=== PATIENT | female | born 1975 | race Caucasian/White ===

== ENCOUNTER 2022-09-26 18:54 | Observation (INO) | payer SELFPAY ==
[2022-09-26 19:02] VITALS: BP 185/98; PULSE 72; RESP 16; TEMP 36.3; O2SAT 99; BMI 30.8
--- NOTE | 2022-09-26 19:19 | ED_ITS ---
HPI - General Adult General Chief complaint: Nausea/Vomiting Stated complaint: Crohn's Disease - Flare Up - Can't Keep Meds Down Time Seen by Provider: 09/26/22 18:55 History of Present Illness HPI narrative: This 47-year-old female comes in with vomiting and diarrhea with abdominal pain. She has a history of Crohn's disease and states that she was in the hospital a couple days this week and discharged 2 days ago for these symptoms. She left the hospital early upon learning that her father had . She states that he had terminal cancer and did not tell family members about it so his came as a surprise. She states that she has not been able to take her medicines because of vomiting. Additionally she left some of her medicines at home. She did have CT scan of her abdomen and pelvis during that hospitalization and this showed some evidence of colitis but no other complications by her report. Related Data Home Medications Medication Instructions Recorded Confirmed dicyclomine 10 mg capsule 10 mg PO BID 09/26/22 09/26/22 infliximab 100 mg intravenous IV 09/26/22 solution (Remicade) prednisone 20 mg tablet 20 mg PO DAILY 09/26/22 09/26/22 zolpidem 10 mg tablet 10 mg PO QHS 09/26/22 09/26/22 Allergies Allergy/AdvReac Type Severity Reaction Status Date / Time No Known Drug Allergies Allergy Verified 09/26/22 19:07 Review of Systems Status of ROS: Reports: 10 or more systems reviewed and unremarkable except as noted in History and below Narrative: Constitutional: No fevers, no weight gain or loss. Eyes: No discharge. No vision changes. HENT: No congestion, no sore throat, no ear pain. Cardiovascular: No chest pain, no palpitations. Respiratory: No shortness of breath, no wheezes, no cough. Gastrointestinal: Abdominal pain with vomiting and diarrhea. Genitourinary: No dysuria, no hematuria. Musculoskeletal: Normal range of motion. Skin: No rashes, no pruritis. Neurological: No dizziness, weakness, sensory change, speech change. Endo/Heme/Allergies: No bruising or bleeding. No polydipsia. Pysch: no suicidality, no anxiety, no insomnia. All other systems reviewed and are negative. [facility] Medical History (Updated 09/26/22 @ 21:06 by Eulogio Hayes MD) Crohn's disease Social History Smoking Status: Never smoker Do you use any of these nicotine containing products: None Second hand tobacco smoke exposure: No How often do you have a drink containing alcohol: never How often do you have six or more drinks on one occasion: Never AUDIT-C Alcohol total score: 0 Non-prescribed substance use: denies use service: No Exam Narrative: Exam Narrative: Constitutional: Well-developed, well-nourished, no acute distress. HEENT: Normocephalic, atraumatic. Neck: Normal range of motion. Nontender. Supple. Heart: Regular. No murmurs. Normal rate. Intact distal pulses. Lungs: Clear to auscultation. No chest discomfort. No wheezes, rhonchi, or rales. Abdomen: Diffuse tenderness in the abdomen, right greater than left. Genitalia: Deferred. Back: No midline tenderness. Normal range of motion. Extremities: Normal range of motion. No injury. Skin: Intact. No rash. Warm. No erythema or pallor. Neurologic: No altered sensation. No weakness. Alert and oriented. Psychiatric: No suicidality. No anxiety or depression. No insomnia. Nursing notes and vitals signs are reviewed. Const: Vital Signs, click to edit/add: Vital Signs - 24 hr 09/26/22 19:02 09/26/22 19:59 09/26/22 21:04 Temperature 97.3 F L Pulse Rate [Left P ulse Oximeter] 72 76 71 Respiratory Rate 16 16 16 Blood Pressure [Ri ght Upper Arm] 185/98 H 146/82 H 172/93 H Pulse Oximetry 99 97 98 Oxygen Delivery Me thod Room Air Room Air Room Air Course Vital Signs Vital signs: Initial Vital Signs Temperature 97.3 F L 09/26/22 19:02 Temperature Source Temporal Artery Scan 09/26/22 19:02 Pulse Rate 72 09/26/22 19:02 Respiratory Rate 16 09/26/22 19:02 Blood Pressure 185/98 H 09/26/22 19:02 Blood Pressure Mean 127 09/26/22 19:02 Blood Pressure Position Semi-Fowlers 09/26/22 19:02 Pulse Oximetry 99 09/26/22 19:02 Oxygen Delivery Method 09/26/22 19:02 Vital Signs Temperature 97.3 F L 09/26/22 19:02 Pulse Rate 72 09/26/22 19:02 Respiratory Rate 16 09/26/22 19:02 Blood Pressure 185/98 H 09/26/22 19:02 Pulse Oximetry 99 09/26/22 19:02 Oxygen Delivery Method 09/26/22 19:02 Temperature 97.3 F L 09/26/22 19:02 Pulse Rate 71 09/26/22 21:04 Respiratory Rate 16 09/26/22 21:04 Blood Pressure 172/93 H 09/26/22 21:04 Pulse Oximetry 98 09/26/22 21:04 Oxygen Delivery Method 09/26/22 21:04 Medical Decision Making MDM Narrative Medical decision making narrative: This patient has Crohn's disease and comes in with symptoms of a flare up. She arrives with normal vital signs. An IV was established where she received a L of normal saline, Solu-Medrol, Zofran, and Dilaudid. This brought some relief to her symptoms. Lab results returned with reassuring findings. Her sed rate returns in normal range. The patient states that she feels that she would not be able to go home without recurrent symptoms and inability to take her medicines. I did speak with the hospitalist vehicle modification technician, Dr. Esposito, who will arrange for her hospitalization overnight at least. Lab Data Labs: Lab Results 09/26/22 09/26/22 09/26/22 Range/Units 19:46 19:46 19:46 WBC 11.95 H (4.50-11.00) K/uL RBC 4.59 (4.00-5.20) m/uL Hgb 13.0 (12.0-16.0) gm/dL Hct 39.0 (33.0-51.0) % MCV 85 (80-100) fL MCH 28 (26-34) pg MCHC 33 (32-36) gm/dL RDW Coeff of Shavon 12.1 (11.5-15.5) % Plt Count 219 (140-440) K/uL Neut % (Auto) 73.1 H (42.0-72.0) % Lymph % (Auto) 20.3 (20-44) % Coffee % (Auto) 5.9 (0.0-11.0) % Eos % (Auto) 0.1 (0.0-7.0) % Baso % (Auto) 0.1 (0.0-3.0) % Neut # (Auto) 8.70 H (1.7-7.0) K/uL Lymph # (Auto) 2.40 (0.90-2.90) K/uL [place] # (Auto) 0.70 (0.00-0.90) K/UL Eos # (Auto) 0.00 (0.00-0.50) K/uL Baso # (Auto) 0.00 (0.00-0.30) K/uL ESR 9 (2-20) mm/hr Sodium 140 (135-149) mmol/L Potassium 4.0 (3.6-5.1) mmol/L Chloride 104 (96-114) mmol/L Carbon Dioxide 29 (20-32) mmol/L BUN 12 (5-24) mg/dL Creatinine 0.7 (0.5-1.5) mg/dL Estimated Creat Clear 90.36 Estimated GFR 108 ml/min Glucose 113 (60-115) mg/dL Calcium 9.6 (8.4-10.6) mg/dL Discharge Plan Discharge Clinical Impression: Crohn's disease Patient Disposition: Admitted As Inpatient Condition: Unchanged Prescriptions: No Action prednisone 20 mg tablet 20 mg PO DAILY Rx Instructions: days 11-21 of therapy dicyclomine 10 mg capsule 10 mg PO BID infliximab [Remicade] 100 mg recon soln IV zolpidem 10 mg tablet 10 mg PO QHS Follow Up/Referrals: Provider,Not a Local [Primary Care Provider] -
[2022-09-26] MEDS: 0.9 % SODIUM CHLORIDE 1000 ml 1,000 ML IV (19:50)
[2022-09-26] MEDS: HYDROmorphone 0.5 mg/0.5 ml inj IVP ×2 (19:52→22:10)
[2022-09-26] MEDS: ONDANSETRON 2 MG/ML inj 4 MG IVP (19:52)
[2022-09-26 19:54] LABS: Basophils Percent Auto 0.1 % (0.0-3.0); Eosinophils Percent Auto 0.1 % (0.0-7.0); Immature Granulocytes Pct Auto 0.5 %; Lymphocytes Percent Auto 20.3 % (20-44); Mean Corpuscular HGB Conc 33 gm/dL (32-36); Mean Corpuscular Hemoglobin 28 pg (26-34); Mean Corpuscular Volume 85 fL (80-100); Monocytes Percent Auto 5.9 % (0.0-11.0); Neutrophils Percent Auto 73.1 % (42.0-72.0); Platelet Count* 219 K/uL (140-440); RDW Coefficient of Variation % 12.1 % (11.5-15.5); Red Blood Count 4.59 m/uL (4.00-5.20); White Blood Count* 11.95 K/uL (4.50-11.00)
[2022-09-26 19:57] LABS: Slide Review Reflex No
[2022-09-26 19:59] VITALS: BP 146/82; PULSE 76; RESP 16; O2SAT 97
[2022-09-26 20:09] LABS: Chloride* 104 mmol/L (96-114); Sodium* 140 mmol/L (135-149)
[2022-09-26 20:12] LABS: Blood Urea Nitrogen* 12 mg/dL (5-24); Carbon Dioxide* 29 mmol/L (20-32); Creatinine* 0.7 mg/dL (0.5-1.5); Est. Creatinine Clearance* 90.36; Estimated Glomerular Filt Rate 108 ml/min; Glucose* 113 mg/dL (60-115)
[2022-09-26 20:13] LABS: Calcium* 9.6 mg/dL (8.4-10.6)
--- NOTE | 2022-09-26 20:29 | ED.NURSE ---
Patient reports mild nausea. Declines further intervention at this time. She states she is sensitive to several of the antiemetics. Emesis bag provided. Patient will let curriculum writer know nausea is worsening.
[2022-09-26 20:48] LABS: Erythrocyte SedimentationRate* 9 mm/hr (2-20)
[2022-09-26 21:04] VITALS: BP 172/93; PULSE 71; RESP 16; O2SAT 98
[2022-09-26] MEDS: METHYLPREDNISOLONE SOD SUCC 62.5 MG/ML (125) IVP (21:10)
[2022-09-26 21:18] LABS: C Reactive Protein* 0.5 mg/dL (0.5-1.0)
--- NOTE | 2022-09-26 21:58 | P.IMHP_ITS ---
Hospitalist- H&P: TATYANA History of Present Illness Date Seen: 09/26/22 Chief complaint: Tenzin's Disease - Flare Up - Can't Keep Meds Down Narrative: Jossie Dominguez is a 47 year old female with longstanding Crohn's disease admitted through the emergency department with persistent vomiting. Last week the patient had onset of symptoms of a typical flare of her Crohn's disease. She had abdominal pain and vomiting. She tried to manage this is an outpatient with oral prednisone 60 mg daily. She was unable to keep down the prednisone and so she was admitted to [facility] in [facility] from Wednesday to of this week. She had to leave the hospital earlier than planned because she wanted to come to [place] because her father just committed suicide. He had terminal cancer. Since leaving the hospital she has continued to have problems with eating and drinking and keeping her medications down. She has not had a fever. She continues to have abdominal pain primarily in the mid right abdomen. She is passing gas. At [facility] in [facility] she had a CT scan of the abdomen which showed bowel thickening but apparently no abscess or obstruction. She has Crohn's disease since age 22. Multiple hospitalizations for flares but no surgery. She reports she has had a partial obstruction treated with NG suctioning in the past. Treatment for Crohn's disease has been Remicade taken every 8 weeks, mesalamine 800 mg p.o. 3 times a day and prednisone 60 mg daily as needed for flares Review of Systems Narrative: Other than the abdominal symptoms recently she reports that she has generally been feeling well with no other illness. Current medications: Prozac 40 mg daily Lipitor 20 mg daily Prilosec 20 mg b.i.d. Lisinopril 20 mg daily Mesalamine 800 mg p.o. t.i.d. Zolpidem 10 mg at at bedtime p.r.n. Dicyclomine 10 mg b.i.d. p.r.n. Ondansetron p.r.n. Imodium p.r.n. Remicade every 8 weeks IV Prednisone 20 mg 3 tablets Daily p.r.n. Crohn's flares PFSH PFS Medical History (Updated 09/26/22 @ 22:16 by Chris Esposito MD) Crohn's disease Hypertension Stroke Surgical History (Updated 09/26/22 @ 22:16 by Chris Esposito MD) History of appendectomy History of section History of cholecystectomy History of fasciotomy Hx of decompressive lumbar laminectomy Family History (Updated 09/26/22 @ 22:16 by Chris Esposito MD) Father Colon cancer Social History (Updated 09/26/22 @ 22:19 by Chris Esposito MD) Narrative: Patient is born in the [place]. Mother lives in [place]. She moved to [place] to live with her [place] . She has 3 daughters. She her [place]ian . As a part of the divorce she is to remain in [facility] until her youngest daughter is 18 years old. Youngest is currently 14 years old. Her older daughters are in college. She does not smoke. She does not drink alcohol. She does not use recreational drugs. Her mother, Molly Newton, lives in [place] and is healthcare power of finance attorney. Code status is full. Smoking Status: Never smoker Do you use any of these nicotine containing products: None Second hand tobacco smoke exposure: No How often do you have a drink containing alcohol: never How often do you have six or more drinks on one occasion: Never AUDIT-C Alcohol total score: 0 Non-prescribed substance use: denies use service: No Meds Home Medications and Allergies Home Medications Medication Instructions Recorded Confirmed Type dicyclomine 10 mg capsule 10 mg PO BID 09/26/22 09/26/22 History infliximab 100 mg intravenous IV 09/26/22 History solution (Remicade) prednisone 20 mg tablet 20 mg PO DAILY 09/26/22 09/26/22 History zolpidem 10 mg tablet 10 mg PO QHS 09/26/22 09/26/22 History Allergies Allergy/AdvReac Type Severity Reaction Status Date / Time No Known Drug Allergies Allergy Verified 09/26/22 19:07 Exam Narrative: Exam Narrative: She is alert and appears in no distress. She gives her own history. Eyes are normal. Oropharynx with small airway. Neck is supple without mass or adenopathy. Respirations are clear to auscultation. Cardiovascular: S1, S2, regular rate and rhythm. No murmur gallop or rub. Abdomen: Bowel sounds active. Abdomen is soft with mild right-sided tenderness. No mass. Extremities with intact pulses. No edema. No rash. Const: Vital Signs, click to edit/add: Vital Signs - 24 hr 09/26/22 19:02 09/26/22 19:59 09/26/22 21:04 Temperature 97.3 F L Pulse Rate [Left P ulse Oximeter] 72 76 71 Respiratory Rate 16 16 16 Blood Pressure [Ri ght Upper Arm] 185/98 H 146/82 H 172/93 H Pulse Oximetry 99 97 98 Oxygen Delivery Me thod Room Air Room Air Room Air Documenting provider has reviewed patient's vital signs: yes Hospitalist - H&P: Result Labs Labs: Short CBC 09/26/22 Range/Units 19:46 WBC 11.95 H (4.50-11.00) K/uL Hgb 13.0 (12.0-16.0) gm/dL Hct 39.0 (33.0-51.0) % Plt Count 219 (140-440) K/uL BMP 09/26/22 19:46 Sodium 140 Potassium 4.0 Chloride 104 Carbon Dioxide 29 BUN 12 Creatinine 0.7 Glucose 113 Calcium 9.6 Assessment and Plan Assessment and plan (1) Crohn's disease: Status: Acute Plan Patient will be admitted for IV fluids, IV steroids and monitoring. Will attempt to obtain medical records from [facility] in [facility]. May need repeat imaging to determine if she has a partial small-bowel obstruction. May need surgical consult if she does have a partial small-bowel obstruction. Monitor for infectious complications including abscess formation. Plan of care is discussed with the patient. She is in agreement with this. Total time spent today is 75 minutes, 45 minutes in coordination of care and discussing with patient and other providers ongoing evaluation management of flare of Crohn's disease
[2022-09-26 22:14] VITALS: BP 162/99; PULSE 65; RESP 16; O2SAT 97
--- NOTE | 2022-09-26 22:29 | ED.NURSE ---
Report to coverage specialist, Alida. Patient will be going to room 261.
[2022-09-26 22:30] LABS: PCR FLU A Negative PCR FLU A (Negative); PCR FLU B Negative PCR FLU B (Negative); PCR RSV Negative PCR RSV (Negative); SARS PCR* Negative SARS-CoV-2 (Negative)
[2022-09-26 22:41] VITALS: BP 142/100; PULSE 63; RESP 18; TEMP 36.8; O2SAT 98; BMI 32.7
[2022-09-26 23:00] VITALS: BP 142/100; PULSE 63; RESP 18; TEMP 36.8; O2SAT 98
[2022-09-27] MEDS: LACTATED RINGERS 1000 ML 1,000 ML 125 ML IV (00:07)
[2022-09-27] MEDS: HYDROmorphone 0.5 mg/0.5 ml inj IVP (00:19)
[2022-09-27] MEDS: ZOLPIDEM 5 MG TABLET 10 MG PO (00:20)
[2022-09-27] MEDS: HYDROmorphone 2 MG TABLET PO ×4 (01:17→08:23)
[2022-09-27 03:18] VITALS: BP 150/82; PULSE 77; RESP 18; TEMP 36.8; O2SAT 98
--- NOTE | 2022-09-27 06:50 | PC.NURSE ---
Status [id number] Pt admitted from ER into 261 around 0. Alert and oriented. C/o abdominal pain. PRN IV dilaudid given x1, PO dilaudid given Q2H PRN. BP slightly elevated. Remains on room air. Denies nausea. LR at 125mL/hr. Up independently. Minimal resting. ?
[2022-09-27 07:36] LABS: Hemoglobin* 13.7 gm/dL (12.0-16.0); Immature Granulocytes Abs Auto 0.06 K/uL (0.00-0.30); Immature Granulocytes Pct Auto 0.8 %; Lymphocytes Percent Auto 11.7 % (20-44); Mean Corpuscular HGB Conc 33 gm/dL (32-36); Mean Corpuscular Hemoglobin 29 pg (26-34); Mean Corpuscular Volume 85 fL (80-100); Monocytes Percent Auto 1.6 % (0.0-11.0); Neutrophils Percent Auto 85.9 % (42.0-72.0); Platelet Count* 166 K/uL (140-440); White Blood Count* 7.59 K/uL (4.50-11.00)
[2022-09-27 07:38] LABS: Slide Review Reflex No
[2022-09-27 07:59] VITALS: BP 169/95; PULSE 71; RESP 18; TEMP 37.2; O2SAT 99
--- NOTE | 2022-09-27 08:00 | PM.IMPN1 ---
Progress Note: A&P Assessment and plan (1) Crohn's disease: Problem details: DC fluids. Transition from IV steroids to p.o. prednisone, 60 mg this morning. Changing to oral Dilaudid. 2-4 mg Q 4 p.r.n.. Advanced diet as tolerated. If her symptoms are managed to her satisfaction and she is not vomiting or needing excessive opioids we can look at a discharge later today. Status: Acute Subjective Date Seen: 09/27/22 Interval history: Daily Progress Note - Hospital Medicine Day #: 2 CC: Crohn's disease exacerbation OVERNIGHT UPDATES FROM STAFF & MED, LAB, IMAGING UPDATES Patient had a good night. She states her pain is still up and down but generally better. She has passed 2 nonbloody bowel movements and she is passing gas. She has ordered a full liquid diet and is hoping to go home today. She has done this many times in the course of her Crohn's disease. She specifically asks for her fluids to be turned off, to transition to oral prednisone, oral Dilaudid and to be able to advance her diet at lunch. She states she will be able to tell if she is ready to go by this afternoon. Objective: Vitals: Reviewed. No evidence of sepsis. Hypertensive actually. No fever. see above Lungs: Clear. Cardiac: S1S2. Abdomen: Soft, distant bowel sounds. Mild tenderness in the right lower quadrant. No rebound. Disposition/Potential discharge - Likely to return to previous living situation. Total time is 35 minutes with greater than 50% spent in counseling and coordination of care. Exam Const: Vital Signs, click to edit/add: Vital Signs - 24 hr 09/26/22 19:02 09/26/22 19:59 09/26/22 21:04 Temperature 97.3 F L Pulse Rate [Left P ulse Oximeter] 72 76 71 Pulse Rate [Pulse Oximeter] Respiratory Rate 16 16 16 Blood Pressure [Le ft Arm] Blood Pressure [Ri ght Upper Arm] 185/98 H 146/82 H 172/93 H Pulse Oximetry 99 97 98 Oxygen Delivery Me thod Room Air Room Air Room Air 09/26/22 22:14 09/26/22 22:41 09/26/22 23:00 Temperature 98.2 F 98.2 F Pulse Rate [Left P ulse Oximeter] 65 Pulse Rate [Pulse Oximeter] 63 63 Respiratory Rate 16 18 18 Blood Pressure [Le ft Arm] 142/100 H 142/100 H Blood Pressure [Ri ght Upper Arm] 162/99 H Pulse Oximetry 97 98 98 Oxygen Delivery Me thod Room Air Room Air Room Air 09/27/22 03:18 Temperature 98.2 F Pulse Rate [Left P ulse Oximeter] Pulse Rate [Pulse Oximeter] 77 Respiratory Rate 18 Blood Pressure [Le ft Arm] 150/82 H Blood Pressure [Ri ght Upper Arm] Pulse Oximetry 98 Oxygen Delivery Me thod Room Air Labs Labs: Laboratory Results - last 24 hr 09/26/22 09/26/22 09/26/22 19:46 19:46 19:46 WBC 11.95 H RBC 4.59 Hgb 13.0 Hct 39.0 MCV 85 MCH 28 MCHC 33 RDW Coeff of Shavon 12.1 Plt Count 219 Neut % (Auto) 73.1 H Lymph % (Auto) 20.3 [place] % (Auto) 5.9 Eos % (Auto) 0.1 Baso % (Auto) 0.1 Neut # (Auto) 8.70 H Lymph # (Auto) 2.40 [place] # (Auto) 0.70 Eos # (Auto) 0.00 Baso # (Auto) 0.00 ESR 9 Sodium 140 Potassium 4.0 Chloride 104 Carbon Dioxide 29 BUN 12 Creatinine 0.7 Estimated Creat Clear 90.36 Estimated GFR 108 Glucose 113 Calcium 9.6 C-Reactive Protein 0.5 SARS-CoV-2 (PCR) Influenza Type A (PCR) Influenza Type B (PCR) RSV (PCR) 09/26/22 09/27/22 21:00 06:58 WBC 7.59 RBC 4.80 Hgb 13.7 Hct 41.0 MCV 85 MCH 29 MCHC 33 RDW Coeff of Shavon 12.0 Plt Count 166 Neut % (Auto) 85.9 H Lymph % (Auto) 11.7 L [place] % (Auto) 1.6 Eos % (Auto) 0.0 Baso % (Auto) 0.0 Neut # (Auto) 6.50 Lymph # (Auto) 0.90 [place] # (Auto) 0.10 Eos # (Auto) 0.00 Baso # (Auto) 0.00 ESR Sodium Potassium Chloride Carbon Dioxide BUN Creatinine Estimated Creat Clear Estimated GFR Glucose Calcium C-Reactive Protein SARS-CoV-2 (PCR) Negative SARS-CoV-2 Influenza Type A (PCR) Negative PCR FLU A Influenza Type B (PCR) Negative PCR FLU B RSV (PCR) Negative PCR RSV
[2022-09-27] MEDS: OMEPRAZOLE 20 MG CAPSULE DR PO (08:23)
[2022-09-27] MEDS: FLUOXETINE HCL 20 MG CAPSULE 40 MG PO (09:03)
[2022-09-27] MEDS: predniSONE 20 MG TABLET 60 MG PO (09:03)
[2022-09-27 09:22] LABS: Procalcitonin* 0.04 ng/mL (<0.50)
[2022-09-27 10:35] LABS: C Reactive Protein* < 0.5 mg/dL (0.5-1.0)
[2022-09-27 10:40] LABS: Procalcitonin* 0.03 ng/mL (<0.50)
[2022-09-27 11:24] VITALS: BP 156/90; PULSE 72; RESP 16; TEMP 37.1; O2SAT 93
[2022-09-27 12:56] VITALS: RESP 16; TEMP 37.1
--- NOTE | 2022-09-27 12:58 | PC.NURSE ---
Discharge: Patient pleasant and cooperative, up independently. Patient came up to desk around 1200 asking for discharge due to family issues, MD updated and discharge orders processed. Pain controlled with PRN dilaudid, last taken this morning at 8am. Patient states she does not have ride from hospital but has car in ED parking lot, encouraged patient to find ride since she has had dilaudid 5hrs ago. IV removed with catheter intact. Discharge instructions and medications reviewed. Patient discharged from floor @ 1255, able to ambulate to car.
--- NOTE | 2022-09-27 14:56 | P.DS_ITS ---
DS: Providers Provider Date Seen: 09/27/22 Date of admission: 09/26/22 22:33 Primary care physician: Not a Local Provider Admitting Clinician: Chris Esposito MD Attending Physician on discharge: Zoila Nolasco MD [place] [facility] Date of Discharge: 09/27/22 DS: Diagnosis Discharge Diagnosis (1) Crohn's disease: Status: Acute Problem details: DC fluids. Transition from IV steroids to p.o. prednisone, 60 mg this morning. Changing to oral Dilaudid. 2-4 mg Q 4 p.r.n.. Advanced diet as tolerated. If her symptoms are managed to her satisfaction and she is not vomiting or needing excessive opioids we can look at a discharge later today. DS: Summary Hospital Course Hospital Course: HOSPITALIST DISCHARGE SUMMARY ATTENDING PHYSICIAN: Zoila Nolasco MD FINAL DIAGNOSIS: Presumed Crohn's disease exacerbation HOSPITAL FOLLOWUP ISSUES: 1. 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 The prednisone taper. Zofran, Dilaudid p.r.n.. REFERRALS WHILE ADMITTED: None REFERRALS AFTER DISCHARGE: None BRIEF HOSPITAL COURSE: Patient came in on the evening of September 26 complaining of abdominal pain, nausea and vomiting. She states she has had a history of Crohn's disease for many years. She states that she was admitted earlier in the week in [place] for a routine exacerbation when she had to leave suddenly to come to [place] where her father has committed suicide. Overnight she received IV fluids, IV steroids and pain medication with antiemetics. She felt better and had a full liquid diet. She did not vomit. She has no fever. She has very minimal abdominal tenderness. She asked for discharge this morning and would like to finish her prednisone orally, she states if she has p.o. Dilaudid, p.o. Zofran she can manage through the rest of the exacerbation. She had 2 small stools while she was here. No mucus. No blood. Discharged with limited narcotic prescriptions. She also asked for refill of her Ambien which she left in her smith to come to [place]. Again a limited number of these. Her prednisone taper was sent to [facility] as well as [facility]. SUBSTANTIVE NOTATIONS ON IMAGING, LAB, MICROBIOLOGY/PATHOLOGY STUDIES: CBC down trended from 11.9-7.5 CRP was normal, procalcitonin was normal Normal electrolytes yesterday. No imaging was obtained. DISCHARGE MEDICATIONS: See Reconciled list - SIGNIFICANT CHANGES: REVIEW OF SYSTEMS No new chest pain or dyspnea Pain controlled No voiding difficulties Tolerating diet challenge PHYSICAL EXAM: CONSTITUTIONAL: VITAL SIGNS: see record. HEENT: Normocephalic, atraumatic. PERRL, EOMI, conjunctivae pink, no scleral icterus. Ears and nose externally normal. Pharynx normal. NECK: No JVD. No carotid bruit, no thyromegaly, no adenopathy. CHEST: Clear to auscultation bilaterally. HEART: S1 and S2 normal. Edema ABDOMEN: Soft, nontender. Normal bowel sounds. MUSCULOSKELETAL: No gross joint deformity or swelling. NEURO: Cranial nerves intact. Grossly intact. No asymmetric findings. SKIN: No rashes, petechiae, concerning changes PSYCHIATRIC: Mood euthymic. DISPOSITION: Time spent on discharge 37 minutes. Status at Discharge Functional status at discharge: independent ambulation Overall status at discharge: patient is progressing back to baseline Time Spent with Patient Time attestation: Total time spent providing and/or coordinating discharge services: Time spent: Greater than 30 minutes Exam Const: Vital Signs, click to edit/add: Vital Signs - 24 hr 09/26/22 19:02 09/26/22 19:59 09/26/22 21:04 Temperature 97.3 F L Pulse Rate [Left P ulse Oximeter] 72 76 71 Pulse Rate [Pulse Oximeter] Respiratory Rate 16 16 16 Blood Pressure [Le ft Arm] Blood Pressure [Ri ght Upper Arm] 185/98 H 146/82 H 172/93 H Pulse Oximetry 99 97 98 Oxygen Delivery Me thod Room Air Room Air Room Air 09/26/22 22:14 09/26/22 22:41 09/26/22 23:00 Temperature 98.2 F 98.2 F Pulse Rate [Left P ulse Oximeter] 65 Pulse Rate [Pulse Oximeter] 63 63 Respiratory Rate 16 18 18 Blood Pressure [Le ft Arm] 142/100 H 142/100 H Blood Pressure [Ri ght Upper Arm] 162/99 H Pulse Oximetry 97 98 98 Oxygen Delivery Mt thod Room Air Room Air Room Air 09/27/22 03:18 09/27/22 07:59 09/27/22 11:24 Temperature 98.2 F 99 F 98.8 F Pulse Rate [Left P ulse Oximeter] Pulse Rate [Pulse Oximeter] 77 71 72 Respiratory Rate 18 18 16 Blood Pressure [Le ft Arm] 150/82 H 169/95 H 156/90 H Blood Pressure [Ri ght Upper Arm] Pulse Oximetry 98 99 93 Oxygen Delivery Me thod Room Air Room Air Room Air 09/27/22 12:56 Temperature 98.8 F Pulse Rate [Left P ulse Oximeter] Pulse Rate [Pulse Oximeter] Respiratory Rate 16 Blood Pressure [Le ft Arm] Blood Pressure [Ri ght Upper Arm] Pulse Oximetry Oxygen Delivery Me thod DS: Data Data Completed and Pending Labs on day of discharge: Labs from last 24 hours 09/27/22 09/27/22 09/26/22 09:40 06:58 21:00 WBC 7.59 RBC 4.80 Hgb 13.7 Hct 41.0 MCV 85 MCH 29 MCHC 33 RDW Coeff of Shavon 12.0 Plt Count 166 Neut % (Auto) 85.9 H Lymph % (Auto) 11.7 L [place] % (Auto) 1.6 Eos % (Auto) 0.0 Baso % (Auto) 0.0 Neut # (Auto) 6.50 Lymph # (Auto) 0.90 [place] # (Auto) 0.10 Eos # (Auto) 0.00 Baso # (Auto) 0.00 ESR Sodium Potassium Chloride Carbon Dioxide BUN Creatinine Estimated Creat Clear Estimated GFR Glucose Calcium C-Reactive Protein < 0.5 L Procalcitonin 0.03 SARS-CoV-2 (PCR) Negative SARS-CoV-2 Influenza Type A (PCR) Negative PCR FLU A Influenza Type B (PCR) Negative PCR FLU B RSV (PCR) Negative PCR RSV 09/26/22 09/26/22 09/26/22 19:46 19:46 19:46 WBC 11.95 H RBC 4.59 Hgb 13.0 Hct 39.0 MCV 85 MCH 28 MCHC 33 RDW Coeff of Shavon 12.1 Plt Count 219 Neut % (Auto) 73.1 H Lymph % (Auto) 20.3 [place] % (Auto) 5.9 Eos % (Auto) 0.1 Baso % (Auto) 0.1 Neut # (Auto) 8.70 H Lymph # (Auto) 2.40 [place] # (Auto) 0.70 Eos # (Auto) 0.00 Baso # (Auto) 0.00 ESR 9 Sodium 140 Potassium 4.0 Chloride 104 Carbon Dioxide 29 BUN 12 Creatinine 0.7 Estimated Creat Clear 90.36 Estimated GFR 108 Glucose 113 Calcium 9.6 C-Reactive Protein 0.5 Procalcitonin 0.04 SARS-CoV-2 (PCR) Influenza Type A (PCR) Influenza Type B (PCR) RSV (PCR) Discharge Plan Discharge Disposition: Home, Self-Care Date of Admission: 09/26/22 22:33 Attending Provider on Discharge: Zoila Nolasco Primary Care Provider: Provider,Not a Local Condition: Unchanged Anticipated Discharge Date/Time: 09/27/22 12:24 Discharge Medications: New prednisone 20 mg tablet 20 mg PO DAILY Qty: 20 0RF Rx Instructions: take 3 tabs po qam x 3 days, 2 tabs po qam x 3 days, 1 tab po qam x 3 days, 1/2 tab po qam x 3 days. ondansetron 4 mg tablet,disintegrating 4 mg PO Q8H Qty: 15 0RF Continued prednisone 20 mg tablet 60 mg PO DAILY PRN Rx Instructions: NEEDED FOR FLARES dicyclomine 10 mg capsule 10 mg PO BID PRN infliximab [Remicade] 100 mg recon soln IV zolpidem 10 mg tablet 10 mg PO QHS PRN fluoxetine 40 mg capsule 40 mg PO DAILY atorvastatin 20 mg tablet 20 mg PO QHS ondansetron 4 mg tablet,disintegrating 4 mg PO Q6-8H PRN loperamide [Imodium A-D] 2 mg capsule 2 mg PO QID PRN omeprazole 20 mg capsule,delayed release(DR/EC) 20 mg PO BID lisinopril 20 mg tablet 20 mg PO DAILY mesalamine 800 mg tablet,delayed release (DR/EC) 800 mg PO TID multivitamin [Daily Multi-Vitamin] Tablet 1 tab PO DAILY Discharge Orders: Discharge Order (Routine); Ordered 09/27/22 Ordered By: Zoila Nolasco Patient Education: Prednisone (By mouth), Hydromorphone (By mouth), Zolpidem (By mouth), Ondansetron (By mouth), Crohn Disease (DC) Additional Instructions: written scrips for ambien 5mg po hs #7/0RF and dilaudid 2mg po q4 hours prn pain #10/0 Activity Level: Activity as Tolerated Discharge Diet: Full Liquid Follow Up Appointments: Provider,Not a Local [Primary Care Provider] - Forms: [employer] Info Instructions
== END 2022-09-27 12:55 | disposition home or self-care (01) ==
LOC: ED 21:14 → MEDSURG 22:34
PROVIDERS: Family Medicine; Admitting Provider Family Medicine; Emergency Provider Emergency Medicine Emergency Medical Services; Visit Provider Family Medicine
DX: K50.90 Crohn's disease, unspecified, without complications (principal); I10 Essential (primary) hypertension; K21.9 Gastro-esophageal reflux disease without esophagitis; E78.5 Hyperlipidemia, unspecified; Z87.19 Personal history of other diseases of the digestive system; K52.9 Noninfective gastroenteritis and colitis, unspecified; Z86.73 Personal history of transient ischemic attack (TIA), and cerebral infarction without residual deficits
CPT/HCPCS: 36415; 80048; 84145; 85025; 85651; 86140; 87502; 87634; 87635; 96361; 96374; 96375; 96376; 99284; A9270; G0378; J1170; J2405; J2930; J7030; J7120; J7512